=== PATIENT | female | born 1995 | race Caucasian/White ===

== ENCOUNTER 2017-02-10 22:11 | Emergency (ER) | payer MEDICAID ==
[2017-02-10 22:31] VITALS: BMI 29.2
--- NOTE | 2017-02-10 23:28 | ED PDOC ---
Arrival/HPI - General Historian: Patient - History of Present Illness Time/Duration: 1-3 hours Symptom Onset: Sudden Symptom Course: Improving Activities at Onset: Other (playing in the park. ) <Karma Rush - Last Filed: 02/10/17 23:46> <Bucky Han - Last Filed: 02/11/17 00:07> - General Chief Complaint: Trauma Time Seen by Provider: 02/10/17 22:44 - History of Present Illness Narrative History of Present Illness (Text): 02/10/17 23:25 Patient is a 3o y/o with no PMH presenting s/p trauma to the head. Patient states while in the park around 7 pm, she was swinging in the tugger boat when the metal attachment fell off and hit her in the head. Patient state she didn't pass out, no n/v/d. Patient states she felt an immediate sharp pain. Currently patient is c/o lightheadedness, no dizziness, no headache. Patient has scalp pain only with palpation. Patient denies cp, sob, fever or chills. No blurry vision, no focal deficit. (Karma Rush) Past Medical History - Provider Review Nursing Documentation Reviewed: Yes - Travel History Have you recently traveled outside [place] w/in the past 3 mons?: No - Past History Past History: No Previous - Infectious Disease Hx of Infectious Diseases: None - Tetanus Immunization Tetanus Immunization: Unknown - Psychiatric Hx Substance Use: No - Anesthesia Hx Anesthesia: No <Karma Rush - Last Filed: 02/10/17 23:46> Family/Social History - Physician Review Nursing Documentation Reviewed: Yes Family/Social History: No Known Family HX Smoking Status: Never Smoked Hx Alcohol Use: No Hx Substance Use: No <Karma Rush - Last Filed: 02/10/17 23:46> Allergies/Home Meds <Karma Rush - Last Filed: 02/10/17 23:46> <Bucky Han - Last Filed: 02/11/17 00:07> Allergies/Adverse Reactions: Allergies cat dander Allergy (Verified 02/10/17 22:32) SWELLING peanut Allergy (Verified 02/10/17 22:32) ANAPHYLAXIS pollen extracts Allergy (Verified 02/10/17 22:32) ITCHING Review of Systems - Review of Systems Constitutional: Normal Eyes: absent: Vision Changes, Photophobia, Eye Pain ENT: absent: Hearing Changes Respiratory: absent: SOB, Cough Cardiovascular: absent: Chest Pain, Palpitations Gastrointestinal: Normal. absent: Nausea, Vomiting Genitourinary Female: Normal Musculoskeletal: Normal Skin: Normal Neurological: Normal Endocrine: Normal Hemo/Lymphatic: Normal Psychiatric: Normal <Karma Rush - Last Filed: 02/10/17 23:46> Physical Exam Vital Signs Reviewed: Yes Temperature: Afebrile Blood Pressure: Normal Pulse: Regular Respiratory Rate: Normal Appearance: Positive for: Well-Appearing, Non-Toxic, Comfortable Pain Distress: None Mental Status: Positive for: Alert and Oriented X 3 - Systems Exam Head: Present: Atraumatic, Normocephalic, Tenderness (to the frontal scalp.), Swelling (mild, 0.5 cm). No: Contusion, Ecchymosis, Abrasion, Laceration Pupils: Present: PERRL Extroacular Muscles: Present: EOMI Conjunctiva: Present: Normal Mouth: Present: Moist Mucous Membranes Nose (External): Present: Atraumatic Nose (Internal): Present: Normal Inspection Neck: Present: Normal Range of Motion Respiratory/Chest: Present: Clear to Auscultation, Good Air Exchange. No: Respiratory Distress, Accessory Muscle Use Cardiovascular: Present: Regular Rate and Rhythm, Normal S1, S2. No: Murmurs Abdomen: Present: Normal Bowel Sounds. No: Tenderness, Distention Upper Extremity: Present: Normal Inspection. No: Cyanosis, Edema Lower Extremity: Present: Normal Inspection. No: Edema Neurological: Present: GCS=15, CN II-XII Intact, Speech Normal, Motor Func Grossly Intact, Other (able to ambulate with no symptoms. ). No: Gait Normal Skin: Present: Warm, Dry, Normal Color. No: Rashes Psychiatric: Present: Alert, Oriented x 3, Normal Insight, Normal Concentration <Karma Rush - Last Filed: 02/10/17 23:46> Medical Decision Making Re-evaluation Time: 23:50 Reassessment Condition: Re-examined, Improved <Karma Rush - Last Filed: 02/10/17 23:46> <Bucky Han - Last Filed: 02/11/17 00:07> ED Course and Treatment: 02/10/17 23:31 Patient is a 21 y/o F s/p trauma to the scalp. No LOC, no lacerations or ecchymosis to the scalp. (Karma Rush) In agreement with resident note, which includes further HPI details. Patient was seen and evaluated with resident, came up with plan and treatment together. (Bucky Han) - PA / [employer] / Resident Statement / has reviewed & agrees with the documentation as recorded. / has examined the patient and agrees with the treatment plan. <Bucky Han - Last Filed: 02/11/17 00:07> Disposition/Present on Arrival - Present on Arrival Any Indicators Present on Arrival: No History of DVT/PE: No History of Uncontrolled Diabetes: No Urinary Catheter: No History of Decub. Ulcer: No History Surgical Site Infection Following: None - Disposition Have Diagnosis and Disposition been Completed?: Yes Disposition Time: 23:50 Patient Plan: Discharge <Karma Rush - Last Filed: 02/10/17 23:46> <Bucky Han - Last Filed: 02/11/17 00:07> - Disposition Diagnosis: Scalp pain Disposition: HOME/ ROUTINE Condition: STABLE Additional Instructions: The scalp is going to be tender for a while, and you will have headache for few days, take Tylenol as needed for pain. Go tot he nearest emergency room if you experience worst headache of your life, nausea, vomiting, feeling like passing out. [place] [facility] [place] [facility] [place] - Follow up with primary
[2017-02-11 00:03] VITALS: BP 132/93; PULSE 95; RESP 16; O2SAT 98
== END 2017-02-11 | disposition home or self-care (01) ==
LOC: ED 22:11
DX: R51 Headache (principal)

== ENCOUNTER 2018-10-07 03:41 | Emergency (ER) | payer BC, MEDICAID ==
[2018-10-07 03:44] VITALS: BMI 30.8
[2018-10-07] MEDS ORDERED: Sodium Chloride 0.9% 1,000 ML IV STA (03:54)
--- NOTE | 2018-10-07 04:33 | ED PDOC ---
Arrival/HPI - General Chief Complaint: Allergic Reaction Historian: Patient - History of Present Illness Narrative History of Present Illness (Text): 10/07/18 04:29 23 year old female, with no significant past medical history, presents to the emergency department complaining of allergic reaction that began 10 minutes prior to arrival. Patient reports she is allergic to peanuts and ate Pad [place] with no peanuts 12-13 hours ago. Patient also reports using a new container of Aveeno lotion tonight that she has used in the past. Patient denies any fever, chills, chest pain, trouble breathing, tingling sensation to throat, headache, dizziness, or any other complaints. PMD: Dr. Martinez Time/Duration: Prior to Arrival Symptom Onset: Sudden Symptom Course: Unchanged Activities at Onset: Light Context: Home Past Medical History - Provider Review Nursing Documentation Reviewed: Yes - Travel History Have you recently traveled outside [place] w/in the past 3 mons?: No - Past History Past History: No Previous - Infectious Disease Hx of Infectious Diseases: None - Tetanus Immunization Tetanus Immunization: Unknown - Reproductive Menopause: No Currently : No - Psychiatric Hx Substance Use: No - Anesthesia Hx Anesthesia: No Family/Social History - Physician Review Nursing Documentation Reviewed: Yes Family/Social History: No Known Family HX Smoking Status: Never Smoked Hx Alcohol Use: Yes Frequency of alcohol use: Socially Hx Substance Use: No Allergies/Home Meds Allergies/Adverse Reactions: Allergies cat dander Allergy (Verified 10/07/18 03:44) SWELLING peanut Allergy (Verified 10/07/18 03:44) ANAPHYLAXIS pollen extracts Allergy (Verified 10/07/18 03:44) ITCHING Review of Systems - Physician Review All systems were reviewed & negative as marked: Yes - Review of Systems Constitutional: absent: Fevers, Other (chills) ENT: absent: Other ( tingling sensation to throat) Respiratory: absent: Wheezing, Other (trouble breathing) Cardiovascular: absent: Chest Pain Skin: Rash Neurological: absent: Headache, Dizziness Physical Exam Vital Signs Reviewed: Yes Vital Signs Temp Pulse Resp BP Pulse Ox 10/07/18 03:47 97.6 F 160 H 24 122/84 99 Temperature: Afebrile Blood Pressure: Normal Pulse: Tachycardic Respiratory Rate: Normal Appearance: Positive for: Well-Appearing, Non-Toxic, Comfortable Pain Distress: None Mental Status: Positive for: Alert and Oriented X 3 - Systems Exam Head: Present: Atraumatic, Normocephalic, Swelling (periorbital swelling b/l) Pupils: Present: PERRL Extroacular Muscles: Present: EOMI Mouth: Present: Moist Mucous Membranes Respiratory/Chest: Present: Clear to Auscultation, Good Air Exchange. No: Respiratory Distress, Accessory Muscle Use, Wheezes, Rales, Rhonchi Cardiovascular: Present: Regular Rate and Rhythm, Normal S1, S2. No: Murmurs, Rub, Gallop Abdomen: Present: Normal Bowel Sounds Neurological: Present: GCS=15, Speech Normal Skin: Present: Rashes (blanching rash noted to face, upper extremity, chest, neck, back, and inner thighs) Psychiatric: Present: Alert, Oriented x 3, Normal Insight, Normal Concentration Medical Decision Making ED Course and Treatment: 10/07/18 04:32 Impression: 23 year old female presents complaining allergic reaction that began 10 minutes prior to arrival. Plan: -- Benadryl --solu-medrol ---IV Fluids --Pepcid -- Reassess and disposition Progress Notes: 10/07/18 06:26 Patient reassessed and feels much better. No wheezing on exam, with decrease in appearance of urticarial lesions as well as periorbital edema. She is counseled on avoiding special dyes, perfumes, creams/ointments and nuts that would trigger her allergies and advised to take the steroid taper. EpiPen provided. Scripts given. She is stable for discharge. - Medication Orders Current Medication Orders: Sodium Chloride (Sodium Chloride 0.9%) 1,000 mls @ 999 mls/hr IV .Q1H1M STA Stop: 10/07/18 04:54 Last Admin: 10/07/18 04:15 Dose: 999 mls/hr eMAR Start Stop Document 10/07/18 04:15 EB (Rec: 10/07/18 04:15 EB [facility] [id number]) Intravenous Solution Start Date 10/07/18 Start Time 04:15 Discontinued Medications Diphenhydramine HCl (Benadryl) 50 mg PO STAT STA Stop: 10/07/18 03:55 Methylprednisolone (Solu-Medrol) 125 mg IVP STAT STA Stop: 10/07/18 03:55 Last Admin: 02/09/19 04:16 Dose: 125 mg IVP Administration Document 10/07/18 04:16 EB (Rec: 10/07/18 04:20 EB [facility] [id number]) Charges for Administration # of IVP Administrations 1 - Scribe Statement The provider has reviewed the documentation as recorded by the Scribe Ynes Maxwell Provider Scribe Attestation: All medical record entries made by the Scribe were at my direction and personally dictated by me. I have reviewed the chart and agree that the record accurately reflects my personal performance of the history, physical exam, medical decision making, and the department course for this patient. I have also personally directed, reviewed, and agree with the discharge instructions and disposition. Disposition/Present on Arrival - Present on Arrival Any Indicators Present on Arrival: No History of DVT/PE: No History of Uncontrolled Diabetes: No Urinary Catheter: No History of Decub. Ulcer: No History Surgical Site Infection Following: None - Disposition Have Diagnosis and Disposition been Completed?: Yes Diagnosis: Allergic reaction Disposition: HOME/ ROUTINE Disposition Time: 06:22 Patient Plan: Discharge Condition: IMPROVED Discharge Instructions (ExitCare): Allergy Skin Testing Print Language: UKRAINIAN Additional Instructions: All medical record entries made by the Scribe were at my direction and personally dictated by me. I have reviewed the chart and agree that the record accurately reflects my personal performance of the history, physical exam, medical decision making, and the department course for this patient. I have also personally directed, reviewed, and agree with the discharge instructions and disposition. Please take your medication as prescribed Avoid any perfumes, scented soaps/creams, hair dyes or food exposed to tree nuts Prescriptions: Epinephrine HCl [Epipen Auto-Injector] 0.3 mg MR PRN PRN #1 ml PRN Reason: Anaphylaxis Famotidine [Pepcid] 20 mg PO PRN PRN #10 tab PRN Reason: Allergy Symptoms Methylprednisolone [Medrol Dose Pack (21 tabs)] 4 mg PO DAILY #21 mg Referrals: Luz Elena Martinez DO [Primary Care Provider] - Follow up with primary Forms: [employer] (Brazilian)
[2018-10-07] MEDS ORDERED: DiphenhydrAMINE 50 mg/ml Inj IVP STA (04:42)
[2018-10-07 05:26] VITALS: BP 126/73; PULSE 102; RESP 16; TEMP 98.6; O2SAT 100
== END 2018-10-07 06:31 | disposition home or self-care (01) ==
LOC: ED 03:41
DX: T78.40XA Allergy, unspecified, initial encounter (principal); Z91.010 Allergy to peanuts
CPT/HCPCS: 96374; 96375; 99283; J1200; J2930; J7030